=== PATIENT | male | born 1990 | race Caucasian/White ===

== ENCOUNTER 2023-09-07 17:23 | Emergency (ER) | payer BC, OTHER ==
[2023-09-07 17:54] VITALS: BP 102/67; PULSE 60; RESP 16; TEMP 99.3; BMI 21.3
== END 2023-09-07 19:28 | disposition home or self-care (01) ==
LOC: FER 17:23
DX: M79.661 Pain in right lower leg (principal); S86.911A Strain of unspecified muscle(s) and tendon(s) at lower leg level, right leg, initial encounter; X58.XXXA Exposure to other specified factors, initial encounter
CPT/HCPCS: 93971-TC; 99284-25

== ENCOUNTER 2023-09-22 20:12 | Emergency (ER) | payer OTHER ==
[2023-09-22 20:33] VITALS: BP 108/57; PULSE 109; RESP 18; TEMP 103; BMI 21.2
[2023-09-22] MEDS ORDERED: IBUPROFEN 600 MG TABLET (FP) PO ONE ×2 (21:06→21:11)
[2023-09-22] MEDS ORDERED: ACETAMINOPHEN 325 MG TABLET (FP) PO ONE (21:06)
[2023-09-22] MEDS ORDERED: ACETAMINOPHEN 325 MG TABLET (FP) ONE (21:11)
== END 2023-09-22 22:04 | disposition home or self-care (01) ==
LOC: FER 20:12
DX: R50.9 Fever, unspecified (principal); T50.Z95A Adverse effect of other vaccines and biological substances, initial encounter
CPT/HCPCS: 71045-TC-FY; 99283-25